=== PATIENT | female | born 1950 | race Asian ===

== ENCOUNTER 2016-11-13 05:32 | Day surgery (SDC) | payer BC, OTHER ==
[2016-11-13] MEDS ORDERED: PROPARACAINE 0.5% OPHT DROP 15 ML BOTTLE ONE (05:55)
[2016-11-13] MEDS ORDERED: PHENYLEPHRINE 2.5% OPHT DROP 2 ML BOTTLE ONE (05:56)
[2016-11-13] MEDS ORDERED: CYCLOPENTOLATE 1% OPHT DROP 2 ML BOTTLE ONE (05:56)
[2016-11-13] MEDS ORDERED: CIPROFLOXACIN 0.3% OPHT DROP 2.5 ML BOTTLE ONE (05:56)
[2016-11-13] MEDS ORDERED: LIDOCAINE-MPF 1% 5 ML AMPUL ONE (05:57)
[2016-11-13] MEDS ORDERED: TROPICAMIDE 1% OPHT DROP 3 ML BOTTLE ONE (05:57)
[2016-11-13] MEDS ORDERED: HYALURONATE SODIUM 8.5 MG/0.85 ML DISP.SYRIN ONE ×2 (05:58→07:51)
[2016-11-13] MEDS ORDERED: ACETYLCHOLINE CHLORIDE 1% OPHT 1 EA KIT ONE (05:58)
[2016-11-13] MEDS ORDERED: TETRACAINE HCL 0.5% OPHT DROP 2 ML BOTTLE ONE ×2 (05:58→07:51)
[2016-11-13] MEDS ORDERED: BALANCED SALT IRRIG SOLN COMB2 15 ML IRRIG.SOLN ONE (05:58)
[2016-11-13] MEDS ORDERED: FLURBIPROFEN 0.03% OPHT DROP 2.5 ML BOTTLE ONE (06:33)
[2016-11-13] MEDS ORDERED: BALANCED SALT IRRIG SOLN COMB1 500 ML ONE (06:50)
[2016-11-13] MEDS ORDERED: NORMAL SALINE 0.5 ML, VANCOMYCIN FOR BSS PLUS 5 MG MC ONE ×2 (07:00)
[2016-11-13] MEDS ORDERED: BALANCED SALT IRRIG SOLN COMB1 500 ML, VANCOMYCIN FOR BSS PLUS 10 MG, GENTAMICIN SULFAT... IO ONE ×4 (07:00)
[2016-11-13] MEDS ORDERED: MIDAZOLAM HCL 2 MG/2 ML VIAL ONE (07:22)
[2016-11-13] MEDS ORDERED: ONDANSETRON 4 MG/2 ML VIAL IV ONE (07:34)
[2016-11-13] MEDS ORDERED: DEXAMETHASONE SOD PHOSPHATE 4 MG INJ IV ONE (07:34)
[2016-11-13] MEDS ORDERED: IV LACTATED RINGERS SOLUTION 1,000 ML BAG IV ONE (07:35)
[2016-11-13] MEDS ORDERED: IRR STERIL WATER FOR IRR 1000 ML BOTTLE IR ONE (07:35)
== END 2016-11-13 09:48 | disposition home or self-care (01) ==
LOC: DS 05:32
PROVIDERS: ATTEND Ophthalmology
DX: H26.9 Unspecified cataract (principal); K21.9 Gastro-esophageal reflux disease without esophagitis; J30.9 Allergic rhinitis, unspecified; E78.5 Hyperlipidemia, unspecified; I10 Essential (primary) hypertension; J98.4 Other disorders of lung; E04.1 Nontoxic single thyroid nodule; E66.01 Morbid (severe) obesity due to excess calories
CPT/HCPCS: A4217; A4663; J0171; J1100; J1580; J2250; J2405; J3370; J3490; J7120; J7321; V2632